=== PATIENT | male | born 1965 | race American Indian/Alaskan Native ===

== ENCOUNTER 2016-12-29 12:16 | Emergency (ER) | payer OTHER ==
[2016-12-29 13:01] VITALS: BP 146/84
--- NOTE | 2016-12-29 13:16 | Emergency Department Report ---
- General Chief complaint: Extremity Injury, Lower Stated complaint: TOE INFECTION Time Seen by Provider: 12/29/16 13:11 Source: patient Mode of arrival: Ambulatory Limitations: No Limitations - History of Present Illness MD complaint: other (b toe infection) -: week(s) (has been doctoring at home) Severity: moderate Severity scale (0 -10): 3 Improves with: none Worsens with: none Context: none (had DOT recently and no DM) Associated symptoms: denies other symptoms Treatments Prior to Arrival: none - Related Data Previous Rx's Medication Instructions Recorded Last Taken Type Cephalexin [Keflex] 500 mg PO Q12HR #20 cap 12/29/16 Unknown Rx Ketoconazole 500 gm MC BID #1 each 12/29/16 Unknown Rx Sulfamethoxazole/Trimethoprim 1 each PO BID #10 tablet 12/29/16 Unknown Rx [Bactrim DS TAB] Allergies Allergy/AdvReac Type Severity Reaction Status Date / Time No Known Allergies Allergy Unverified 12/29/16 12:56 Abscess Boil HPI - HPI Chief Complaint: Extremity Injury, Lower Stated Complaint: TOE INFECTION Time Seen by Provider: 12/29/16 13:11 Home Medications: Previous Rx's Medication Instructions Recorded Last Taken Type Cephalexin [Keflex] 500 mg PO Q12HR #20 cap 12/29/16 Unknown Rx Ketoconazole 500 gm MC BID #1 each 12/29/16 Unknown Rx Sulfamethoxazole/Trimethoprim 1 each PO BID #10 tablet 12/29/16 Unknown Rx [Bactrim DS TAB] Allergies/Adverse Reactions: Allergies Allergy/AdvReac Type Severity Reaction Status Date / Time No Known Allergies Allergy Unverified 12/29/16 12:56 ED Review of Systems ROS: Stated complaint: TOE INFECTION Other details as noted in HPI Comment: All other systems reviewed and negative Constitutional: no symptoms reported Eyes: as per HPI ENT: as per HPI Respiratory: no symptoms reported Cardiovascular: as per HPI Endocrine: no symptoms reported Gastrointestinal: as per HPI Genitourinary: as per HPI Musculoskeletal: as per HPI Skin: as per HPI, rash (b toes) Neurological: as per HPI Psychiatric: as per HPI Hematological/Lymphatic: as per HPI ED Past Medical Hx - Past Medical History Additional medical history: "IRREGULAR HEART BEAT"--NO MEDS. OBESITY - Surgical History Past Surgical History?: No - Social History Smoking Status: Former Smoker Substance Use Type: Alcohol - Medications Home Medications: Home Medications Medication Instructions Recorded Confirmed Last Taken Type Cephalexin [Keflex] 500 mg PO Q12HR #20 cap 12/29/16 Unknown Rx Ketoconazole 500 gm MC BID #1 each 12/29/16 Unknown Rx Sulfamethoxazole/Trimethoprim 1 each PO BID #10 tablet 12/29/16 Unknown Rx [Bactrim DS TAB] ED Physical Exam - General Limitations: No Limitations General appearance: alert - Head Head exam: Present: atraumatic - Eye Eye exam: Present: normal appearance - ENT ENT exam: Present: normal exam - Neck Neck exam: Present: normal inspection - Respiratory Respiratory exam: Present: normal lung sounds bilaterally - Cardiovascular Cardiovascular Exam: Present: regular rate - GI/Abdominal GI/Abdominal exam: Present: soft - Rectal Rectal exam: Present: deferred - exam: Present: normal inspection - Extremities Exam Extremities exam: Present: normal inspection - Back Exam Back exam: Present: normal inspection - Neurological Exam Neurological exam: Present: alert, altered, oriented X3 - Psychiatric Psychiatric exam: Present: normal affect, normal mood - Skin Skin exam: Present: warm, dry, intact, normal color, other ( r great toe w fungal - chronic; l the same but the l foot bet 1/2 toe and under has excoriated area, is red and 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 no pvd. no fever. non ill appearing. no fever. 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 non toxic Critical care attestation.: If time is entered above; I have spent that time in minutes in the direct care of this critically ill patient, excluding procedure time. ED Disposition Clinical Impression: Athlete's foot, Cellulitis Disposition: DISCHARGED TO HOME OR SELFCARE Is pt being admited?: No Does the pt Need Aspirin: No Condition: Good Instructions: Tinea Pedis (ED), Cellulitis (ED) Additional Instructions: We want this to dry up keep feet cool , cotton socks and breathable shoes flip flops when showering antibiotics as ordered eat yogurt while on these powder as ordered today the infection will clear before the nails. see pcp as discussed- to be sure the fungal infection has cleared, some patients need oral meds to clear them- this is done in the primary care setting not ER. NEW nail clippers etc. This can be contageous to others epsom salts can be soothing no ointments, oils or the like this provides a warm area for bacteria to breed. Prescriptions: Cephalexin [Keflex] 500 mg PO Q12HR #20 cap Ketoconazole 500 gm MC BID #1 each Sulfamethoxazole/Trimethoprim [Bactrim DS TAB] 1 each PO BID #10 tablet Referrals: MARS DEL CID MD [Staff Physician] - 3-5 Days Time of Disposition: 13:14
== END 2016-12-29 13:33 | disposition home or self-care (01) ==
LOC: ED 12:16
DX: B35.3 Tinea pedis (principal); L03.031 Cellulitis of right toe; Z87.891 Personal history of nicotine dependence; E66.9 Obesity, unspecified
CPT/HCPCS: 99282